=== PATIENT | female | born 1995 | race Caucasian/White ===

== ENCOUNTER 2016-06-01 12:34 | Outpatient (CLI) | payer OTHER ==
[~2016-06-01] VITALS: Ht 154.9 cm; Wt 79.5 kg
[~2016-06-01 12:34] MED LIST: FLEXERIL10 MG PO; KEFLEX500 MG PO; OMEPRAZOLE40 M1 PO; ZANTAC150 MG PO; ZOFRAN ODT4 MG PO; ZOFRAN4 MG PO
[2016-06-01 14:50] VITALS: BP 129/80
[2016-06-01 15:36] VITALS: BP 134/84
[2016-06-01 15:57] LABS: HEMATOCRIT 32.3 % (36.0-46.0); MCH 31.3 PG (29.0-34.0); MCHC 33.7 G/DL (30.0-36.0); MCV 92.8 FL (83-99); MEAN PLAT.VOLUME 12.8 uM^3 (9.5-12.4); PLATELET COUNT 186 K/uL (156-360); RBC DIS.WIDTH-CV 12.4 % (11.8-14.6); RBC DIS.WIDTH-SD 42.2 % (39-53); RED BLOOD COUNT 3.48 M/uL (3.80-5.20); WHITE BLOOD COUNT 12.6 K/uL (4.1-10.2)
[2016-06-01 16:00] LABS: ANION GAP 10 MEQ/L (2-14); CHLORIDE 107 MEQ/L (99-109); POTASSIUM 3.8 MEQ/L (3.7-5.4); SAMPLE HEMOLYSIS CHECK 0; SAMPLE ICTERIC CHECK 0; SAMPLE LIPEMIA CHECK 0; SODIUM 139 MEQ/L (136-147); TOTAL BILIRUBIN 0.3 MG/DL (0.0-1.0)
[2016-06-01 16:05] LABS: ADD MIUA? YES; BILIRUBIN NEGATIVE; BLOOD NEGATIVE; COLOR YELLOW ((YELLOW)); GLUCOSE (STRIP) NEGATIVE; KETONES NEGATIVE; LEUKOCYTES NEGATIVE; NITRITE NEGATIVE; PROTEIN (STRIP) NEGATIVE; SPECIFIC GRAVITY 1.002 (1.000-1.030); UROBILINOGEN 0.2 MG/DL (0.2-1.0)
[2016-06-01 16:06] LABS: ALKALINE PHOSPHATASE 67 IU/L (3-129); GFR ESTIMATE (CALCULATED) > 59 mL/min/; GLUCOSE 96 mg/dL (70-99); LACTATE DEHYDROGENASE 170 IU/L (20-246); UREA NITROGEN (BUN) 4 mg/dL (9-23); URIC ACID 3.8 mg/dL (3.1-9.2)
[2016-06-01 16:06] LABS: BACTERIA 1+; CASTS NONE SEEN /LPF; CRYSTALS NONE SEEN; EPITHELIAL CELLS 2+; MUCUS NONE SEEN; PATHOLOGICAL CAST NONE SEEN; RED BLOOD CELLS 0-5 /HPF (0-5); SMALL ROUND CELL NONE SEEN; UCUL ADDED? NO; WHITE BLOOD CELLS 0-5 /HPF (0-5); YEAST-LIKE CELL NONE SEEN
[2016-06-01 16:08] VITALS: BP 122/76
[2016-06-01 16:09] LABS: EOSINOPHIL COUNT 0.1 K/uL (0-0.3); IMMATURE GRANULOCYTE (%) 1.6 % (0.0-0.7); IMMATURE GRANULOCYTE COUNT 0.2 K/uL; LYMPHOCYTE COUNT 1.1 K/uL (1.0-2.8); MONOCYTE (%) 7.9 % (3-12); NEUTROPHIL (%) 80.8 % (45-76); NEUTROPHIL COUNT 10.2 K/uL (1.8-6.4)
[2016-06-01 16:19] LABS: UR CREATININE CONCENTRATION 14.3 MG/DL
[2016-06-01 16:38] VITALS: BP 141/83
[2016-06-01] MEDS ORDERED: PRENATAL GUMMI1 EACH PO (16:54)
[2016-06-01 17:08] VITALS: BP 123/77
== END 2016-06-01 17:47 | disposition home or self-care (01) ==
LOC: EME 12:34 → LDRP-OP 12:34 → EME 14:38 → EDSTATUS 14:51 → 2WEST 14:53
PROVIDERS: Advanced Practice Midwife
DX: O16.2 Unspecified maternal hypertension, second trimester (principal); O99.89 Other specified diseases and conditions complicating pregnancy, childbirth and the puerperium; Z3A.29 29 weeks gestation of pregnancy
CPT/HCPCS: 59025; 80053; 81003; 82570; 83615; 84156; 84550; 85025; 87651 90; 99281; 99284; G0378

== ENCOUNTER 2016-08-06 14:34 | Outpatient (CLI) | payer OTHER ==
[~2016-08-06] VITALS: Ht 154.9 cm; Wt 81.8 kg
[~2016-08-06 14:34] MED LIST changes: +PRENATAL GUMMI1 EACH PO
[2016-08-06 15:18] VITALS: BP 127/85
[2016-08-06 15:36] LABS: EOSINOPHIL (%) 1.1 % (0-5); EOSINOPHIL COUNT 0.1 K/uL (0-0.3); HEMATOCRIT 31.8 % (36.0-46.0); IMMATURE GRANULOCYTE (%) 1.9 % (0.0-0.7); IMMATURE GRANULOCYTE COUNT 0.2 K/uL; INSTRUMENT ABS NEUTROPHIL CT 6.9 K/uL; LYMPHOCYTE COUNT 1.7 K/uL (1.0-2.8); MCH 29.2 PG (29.0-34.0); MCV 88.6 FL (83-99); MEAN PLAT.VOLUME 12.6 uM^3 (9.5-12.4); MONOCYTE (%) 7.3 % (3-12); MONOCYTE COUNT 0.7 K/uL (0-0.8); NEUTROPHIL COUNT 6.9 K/uL (1.8-6.4); PLATELET COUNT 192 K/uL (156-360); RBC DIS.WIDTH-CV 13.2 % (11.8-14.6); RBC DIS.WIDTH-SD 42.8 % (39-53); RED BLOOD COUNT 3.59 M/uL (3.80-5.20); WHITE BLOOD COUNT 9.6 K/uL (4.1-10.2)
[2016-08-06 15:58] LABS: ANION GAP 10 MEQ/L (2-14); CHLORIDE 108 MEQ/L (99-109); POTASSIUM 3.1 MEQ/L (3.7-5.4); SAMPLE HEMOLYSIS CHECK 0; SAMPLE ICTERIC CHECK 0; SAMPLE LIPEMIA CHECK 0; SODIUM 140 MEQ/L (136-147); TOTAL BILIRUBIN 0.5 MG/DL (0.0-1.0)
[2016-08-06 16:04] LABS: ALKALINE PHOSPHATASE 130 IU/L (3-129); GFR ESTIMATE (CALCULATED) > 59 mL/min/; GLUCOSE 77 mg/dL (70-99); LACTATE DEHYDROGENASE 131 IU/L (20-246); UREA NITROGEN (BUN) 4 mg/dL (9-23); URIC ACID 4.3 mg/dL (3.1-9.2)
[2016-08-06 16:08] LABS: ADD MIUA? YES; BILIRUBIN NEGATIVE; BLOOD NEGATIVE; COLOR YELLOW ((YELLOW)); GLUCOSE (STRIP) NEGATIVE; KETONES NEGATIVE; LEUKOCYTES NEGATIVE; NITRITE NEGATIVE; PROTEIN (STRIP) 30; SPECIFIC GRAVITY 1.011 (1.000-1.030); UROBILINOGEN 0.2 MG/DL (0.2-1.0)
[2016-08-06 16:17] LABS: BACTERIA RARE /HPF; EPITHELIAL CELLS 3+ /HPF; MUCUS TRACE /LPF; RED BLOOD CELLS 0-5 /HPF (0-5); UCUL ADDED? NO; WHITE BLOOD CELLS 0-5 /HPF (0-5)
[2016-08-06 16:27] LABS: UR CREATININE CONCENTRATION 155.9 MG/DL
== END 2016-08-06 18:00 | disposition home or self-care (01) ==
LOC: LDRP-OP → 2WEST 14:35
PROVIDERS: Advanced Practice Midwife
DX: O26.893 Other specified pregnancy related conditions, third trimester (principal); Z3A.38 38 weeks gestation of pregnancy
CPT/HCPCS: 59025; 80053; 81003; 82570; 83615; 84156; 84550; 85025; G0378

== ENCOUNTER 2016-08-08 12:59 | Inpatient (IN) | payer OTHER ==
[2016-08-08] VITALS (11 sets, daily range): BP systolic 118–157; BP diastolic 71–93
[~2016-08-08] VITALS: Ht 154.9 cm; Wt 81.2 kg
[2016-08-08 13:59] LABS: EOSINOPHIL (%) 1.1 % (0-5); EOSINOPHIL COUNT 0.1 K/uL (0-0.3); HEMATOCRIT 31.8 % (36.0-46.0); IMMATURE GRANULOCYTE COUNT 0.2 K/uL; INSTRUMENT ABS NEUTROPHIL CT 7.2 K/uL; LYMPHOCYTE COUNT 1.7 K/uL (1.0-2.8); MCH 28.8 PG (29.0-34.0); MCHC 32.7 G/DL (30.0-36.0); MCV 88.1 FL (83-99); MEAN PLAT.VOLUME 12.5 uM^3 (9.5-12.4); MONOCYTE (%) 5.5 % (3-12); MONOCYTE COUNT 0.5 K/uL (0-0.8); NEUTROPHIL COUNT 7.2 K/uL (1.8-6.4); PLATELET COUNT 203 K/uL (156-360); RBC DIS.WIDTH-CV 13.3 % (11.8-14.6); RED BLOOD COUNT 3.61 M/uL (3.80-5.20); WHITE BLOOD COUNT 9.8 K/uL (4.1-10.2)
[2016-08-08 14:18] LABS: ANION GAP 13 MEQ/L (2-14); CHLORIDE 105 MEQ/L (99-109); POTASSIUM 2.9 MEQ/L (3.7-5.4); SAMPLE HEMOLYSIS CHECK 0; SAMPLE ICTERIC CHECK 0; SAMPLE LIPEMIA CHECK 0; SODIUM 137 MEQ/L (136-147); TOTAL BILIRUBIN 0.5 MG/DL (0.0-1.0)
[2016-08-08 14:32] LABS: ALKALINE PHOSPHATASE 133 IU/L (3-129); GFR ESTIMATE (CALCULATED) > 59 mL/min/; GLUCOSE 123 mg/dL (70-99); LACTATE DEHYDROGENASE 122 IU/L (20-246); UREA NITROGEN (BUN) 5 mg/dL (9-23); URIC ACID 4.3 mg/dL (3.1-9.2)
[2016-08-08 16:23] LABS: UR CREATININE CONCENTRATION 225.1 MG/DL
[2016-08-09] VITALS (24 sets, daily range): BP systolic 116–154; BP diastolic 62–95
[2016-08-10] VITALS (30 sets, daily range): BP systolic 107–170; BP diastolic 65–100
[2016-08-11 03:37] VITALS: BP 139/89
[2016-08-11 08:33] LABS: ALKALINE PHOSPHATASE 113 IU/L (3-129); ANION GAP 8 MEQ/L (2-14); CHLORIDE 103 MEQ/L (99-109); GFR ESTIMATE (CALCULATED) > 59 mL/min/; SAMPLE HEMOLYSIS CHECK 0; SAMPLE ICTERIC CHECK 0; SAMPLE LIPEMIA CHECK 0; SODIUM 136 MEQ/L (136-147); UREA NITROGEN (BUN) 8 mg/dL (9-23)
[2016-08-11 08:35] LABS: BASOPHIL COUNT 0.1 K/uL (0-0.1); EOSINOPHIL (%) 0.3 % (0-5); EOSINOPHIL COUNT 0.1 K/uL (0-0.3); IMMATURE GRANULOCYTE (%) 1.3 % (0.0-0.7); IMMATURE GRANULOCYTE COUNT 0.2 K/uL; INSTRUMENT ABS NEUTROPHIL CT 14.7 K/uL; LYMPHOCYTE COUNT 1.6 K/uL (1.0-2.8); MCHC 32.1 G/DL (30.0-36.0); MCV 90.3 FL (83-99); MEAN PLAT.VOLUME 12.7 uM^3 (9.5-12.4); MONOCYTE (%) 6.9 % (3-12); MONOCYTE COUNT 1.2 K/uL (0-0.8); NEUTROPHIL (%) 82.3 % (45-76); NEUTROPHIL COUNT 14.7 K/uL (1.8-6.4); PLATELET COUNT 173 K/uL (156-360); RBC DIS.WIDTH-SD 45.5 % (39-53); RED BLOOD COUNT 3.21 M/uL (3.80-5.20); WHITE BLOOD COUNT 17.8 K/uL (4.1-10.2)
[2016-08-11 08:40] VITALS: BP 141/45
[2016-08-11 09:05] LABS: GLUCOSE 85 mg/dL (70-99); POTASSIUM 3.5 MEQ/L (3.7-5.4); TOTAL BILIRUBIN 0.7 MG/DL (0.0-1.0)
[2016-08-11 12:30] VITALS: BP 138/87
[2016-08-11 15:30] VITALS: BP 142/92
[2016-08-11 20:43] VITALS: BP 134/89
[2016-08-11 22:34] VITALS: BP 139/86
[2016-08-12 03:10] VITALS: BP 134/92
[2016-08-12 08:00] VITALS: BP 136/90
[2016-08-12] MEDS ORDERED: HYDROCODON-ACE1 EAC7 PO (08:10)
[2016-08-12] MEDS ORDERED: IBUPROFEN800 MG PO (08:10)
[2016-08-12] MEDS ORDERED: FERROUS SULFAT325 MG PO (08:10)
== END 2016-08-12 15:16 | disposition home or self-care (01) | DRG 765 ==
LOC: LDRP-OP 12:59 → 2WEST 13:00 → LDRP-OP 09-15 19:03
PROVIDERS: Advanced Practice Midwife; Obstetrics & Gynecology
PROC: 10D00Z1 Extraction of Products of Conception, Low, Open Approach (ICD-10-PCS; principal; 2016-08-10)
PROC: 3E0K7GC Introduction of Other Therapeutic Substance into Genitourinary Tract, Via Natural or Artificial Opening (ICD-10-PCS; principal; 2016-08-10)
PROC: 00HU33Z Insertion of Infusion Device into Spinal Canal, Percutaneous Approach (ICD-10-PCS; principal; 2016-08-10)
PROC: 10907ZC Drainage of Amniotic Fluid, Therapeutic from Products of Conception, Via Natural or Artificial Opening (ICD-10-PCS; principal; 2016-08-10)
PROC: 3E0R3CZ (ICD-10-PCS; principal; 2016-08-10)
DX: O14.04 Mild to moderate pre-eclampsia, complicating childbirth (principal); D62 Acute posthemorrhagic anemia; O62.1 Secondary uterine inertia; O99.214 Obesity complicating childbirth; E66.9 Obesity, unspecified; O99.344 Other mental disorders complicating childbirth; F31.9 Bipolar disorder, unspecified; E87.6 Hypokalemia; L29.9 Pruritus, unspecified; Z37.0 Single live birth; Z3A.39 39 weeks gestation of pregnancy; Z68.33 Body mass index [BMI] 33.0-33.9, adult
CPT/HCPCS: 80053; 82570; 83615; 84156; 84550; 85025; 86850; 86900; 86901; C1755; G0378; J0595; J0690; J1100; J1170; J2274; J2405; J3010; J7120

== ENCOUNTER 2016-10-26 22:39 | Emergency (ER) | payer OTHER ==
[~2016-10-26] VITALS: Ht 154.9 cm; Wt 69.3 kg
[~2016-10-26 22:39] MED LIST changes: +FERROUS SULFAT325 MG PO; +HYDROCODON-ACE1 EAC7 PO; +IBUPROFEN800 MG PO
[2016-10-26 23:08] LABS: ADD MIUA? YES; BILIRUBIN NEGATIVE; BLOOD NEGATIVE; COLOR STRAW ((YELLOW)); GLUCOSE (STRIP) NEGATIVE; KETONES NEGATIVE; LEUKOCYTES TRACE; NITRITE NEGATIVE; PROTEIN (STRIP) NEGATIVE; SPECIFIC GRAVITY 1.005 (1.000-1.030); UROBILINOGEN 0.2 MG/DL (0.2-1.0)
[2016-10-26 23:11] LABS: BACTERIA 1+ /HPF; EPITHELIAL CELLS RARE /HPF; MUCUS TRACE /LPF; RED BLOOD CELLS 0-5 /HPF (0-5); UCUL ADDED? NO; WHITE BLOOD CELLS 0-5 /HPF (0-5)
[2016-10-26 23:18] LABS: MCH 28.2 PG (29.0-34.0); MCHC 32.6 G/DL (30.0-36.0); MCV 86.6 FL (83-99); MEAN PLAT.VOLUME 10.9 uM^3 (9.5-12.4); PLATELET COUNT 276 K/uL (156-360); RBC DIS.WIDTH-CV 13.8 % (11.8-14.6); RBC DIS.WIDTH-SD 43.7 % (39-53); RED BLOOD COUNT 4.85 M/uL (3.80-5.20); WHITE BLOOD COUNT 7.4 K/uL (4.1-10.2)
[2016-10-26 23:29] LABS: CHLORIDE 106 mEq/L (99-109); POTASSIUM 3.1 mEq/L (3.7-5.4); SODIUM 140 mEq/L (136-147)
[2016-10-26 23:32] LABS: GLUCOSE 99 mg/dL (70-99)
[2016-10-26 23:33] LABS: ANION GAP 10 MEQ/L (2-14)
[2016-10-26 23:34] LABS: TOTAL BILIRUBIN 0.4 mg/dL (0.0-1.0)
[2016-10-26 23:35] LABS: ALKALINE PHOSPHATASE 70 IU/L (3-129); GFR ESTIMATE (CALCULATED) > 59 mL/min/
[2016-10-26 23:36] LABS: UREA NITROGEN (BUN) 11 mg/dL (9-23)
[2016-10-26 23:45] LABS: QUANTITATIVE HCG < 4.0 MIU/ML
[2016-10-27] MEDS ORDERED: PEPCID20 MG PO (00:41)
[2016-10-27] MEDS ORDERED: CARAFATE1 GM PO (00:41)
[2016-10-27 00:54] VITALS: BP 139/99
== END 2016-10-27 01:13 | disposition home or self-care (01) ==
LOC: RME 22:39 → EME 22:39 → RME 10-27 01:13
DX: F45.8 Other somatoform disorders (principal); K29.70 Gastritis, unspecified, without bleeding; Z88.6 Allergy status to analgesic agent; Z87.891 Personal history of nicotine dependence
CPT/HCPCS: 80053; 81003; 84702; 85027; 99281; 99283

== ENCOUNTER 2017-05-15 21:42 | Emergency (ER) | payer OTHER ==
[~2017-05-15] VITALS: Ht 154.9 cm; Wt 69.1 kg
[~2017-05-15 21:42] MED LIST changes: +CARAFATE1 GM PO; +PEPCID20 MG PO
[2017-05-15 22:44] LABS: HEMATOCRIT 42.6 % (36.0-46.0); HEMOGLOBIN 14.4 G/DL (11.9-15.5); MCH 31.3 PG (29.0-34.0); MCHC 33.8 G/DL (30.0-36.0); MCV 92.6 FL (83-99); PLATELET COUNT 239 K/uL (156-360); RBC DIS.WIDTH-CV 11.8 % (11.8-14.6); RBC DIS.WIDTH-SD 40.2 % (39-53); WHITE BLOOD COUNT 10.6 K/uL (4.1-10.2)
[2017-05-15 22:59] LABS: ALBUMIN 4.1 g/dL (3.2-4.8)
[2017-05-15 23:00] LABS: CHLORIDE 106 mEq/L (99-109); POTASSIUM 3.7 mEq/L (3.7-5.4); SODIUM 141 mEq/L (136-147)
[2017-05-15 23:02] LABS: GLUCOSE 89 mg/dL (70-99); TOTAL PROTEIN 7.3 g/dL (6.4-8.3)
[2017-05-15 23:04] LABS: TOTAL BILIRUBIN 0.3 mg/dL (0.0-1.0)
[2017-05-15 23:05] LABS: ALKALINE PHOSPHATASE 74 IU/L (3-129)
[2017-05-15 23:06] LABS: CREATININE 0.7 mg/dL (0.6-1.3); GFR ESTIMATE (CALCULATED) > 59 mL/min/
[2017-05-15 23:07] LABS: AST (GOT) 15 IU/L (2-34); UREA NITROGEN (BUN) 17 mg/dL (9-23)
[2017-05-15 23:08] LABS: ALT (GPT) 18 IU/L (3-49)
[2017-05-15 23:10] LABS: APPEARANCE CLEAR ((CLEAR)); BILIRUBIN NEGATIVE; BLOOD NEGATIVE; COLOR YELLOW ((YELLOW)); GLUCOSE (STRIP) NEGATIVE; KETONES NEGATIVE; LEUKOCYTES NEGATIVE; NITRITE NEGATIVE; PROTEIN (STRIP) NEGATIVE; UCUL ADDED? NO
[2017-05-15 23:18] LABS: QUANTITATIVE HCG < 4.0 MIU/ML
[2017-05-16] MEDS ORDERED: BACTRIM,SEPT1 TABLET PO (01:11)
[2017-05-16 01:59] VITALS: BP 121/69
== END 2017-05-16 02:00 | disposition home or self-care (01) ==
LOC: EXP 21:42 → EME 21:42 → EXP 05-16 02:00
DX: N30.90 Cystitis, unspecified without hematuria (principal); R10.32 Left lower quadrant pain; F41.9 Anxiety disorder, unspecified; Z87.891 Personal history of nicotine dependence; Z88.5 Allergy status to narcotic agent; Z88.6 Allergy status to analgesic agent
CPT/HCPCS: 74176; 80053; 81003; 84702; 85027; 87086; 99281; 99284

== ENCOUNTER 2017-07-06 20:13 | Emergency (ER) | payer OTHER ==
[~2017-07-06 20:13] MED LIST changes: +BACTRIM,SEPT1 TABLET PO
== END 2017-07-06 20:45 | disposition left against medical advice (07) ==
LOC: EME 20:13
DX: R05 Cough (principal); J34.89 Other specified disorders of nose and nasal sinuses; H92.09 Otalgia, unspecified ear; Z53.21 Procedure and treatment not carried out due to patient leaving prior to being seen by health care provider